=== PATIENT | female | born 1990 | race Caucasian/White ===

== ENCOUNTER 2019-08-14 19:30 | Emergency (ER) | payer OTHER, SELFPAY ==
[2019-08-14 19:41] VITALS: BP 138/75; PULSE 78; RESP 16; TEMP 36.7; O2SAT 99; BMI 41.1
--- NOTE | 2019-08-14 20:03 | ED_ITS ---
HPI - Wound/Laceration General Chief Complaint: Wound/Laceration Stated Complaint: cut pinky finger of right hand Time Seen by Provider: 08/14/19 19:53 Source: patient Mode of arrival: Ambulatory Limitations: no limitations History of Present Illness HPI narrative: 28-year-old female nonsmoker with noncontributory medical history and up-to-date tetanus presents with a chief complaint of an avulsion laceration to her right 5th finger few hours prior to arrival. She was preparing dinner and using a mandoline when suffering a laceration. Bleeding was stopped easily at home with pressure and a bandage. She has minimal pain and denies any numbness, tingling or weakness. Onset (ago): hour(s) Extremity Location: Right: hand Place: home Patient tetanus UTD: Yes Context: accidental Associated symptoms: pain Treatments prior to arrival: bandage Related Data Previous Rx's Medication Instructions Recorded cephalexin [Keflex] 500 mg PO QID 7 Days #28 cap 08/14/19 Allergies Allergy/AdvReac Type Severity Reaction Status Date / Time No Known Drug Allergies Allergy Verified 08/14/19 19:41 Review of Systems Constitutional Constitutional: Denies chills, Denies fatigue, Denies fever(s), Denies frequent falls, Denies lethargy and Denies weakness Eyes Eyes: Denies change in vision, Denies eye discharge, Denies irritation and Denies loss of vision ENT Ears, Nose, Mouth, and Throat: Denies change in voice, Denies dizziness, Denies neck pain, Denies sore throat and Denies throat swelling Cardiovascular Cardiovascular: Denies chest pain, Denies irregular heart rhythm, Denies lightheadedness, Denies palpitations, Denies dyspnea, Denies dyspnea on exertion and Denies orthopnea Respiratory Respiratory: Denies cough, Denies dyspnea, Denies dyspnea on exertion and Denies wheezing Gastrointestinal Gastrointestinal: Denies abdominal pain, Denies change in bowel habits, Denies diarrhea, Denies nausea and Denies vomiting Genitourinary Genitourinary: Denies hematuria, Denies flank pain, Denies urinary incontinence and Denies urinary urgency Musculoskeletal Musculoskeletal: Denies back pain, Denies muscle weakness, Denies neck pain, Denies numbness and Denies tingling Integumentary/Breasts Skin/Breast: Denies pruritus, Denies erythema, Denies rash and Reports wounds Neurologic Neurologic: Denies behavioral changes, Denies confusion, Denies dizziness, Denies frequent falls, Denies loss of vision, Denies numbness, Denies tingling and Denies weakness Psychiatric Psychiatric: Denies anxiety, Denies behavioral changes, Denies confusion, Denies depression, Denies homicidal ideation and Denies suicidal ideation Endocrine Endocrine: Denies fatigue, Denies flushing and Denies palpitations Hematologic/Lymphatic Hematologic/Lymphatic: Denies easy bruising Allergic/Immunologic Allergic/Immunologic: Denies urticaria, Denies throat swelling and Denies wheezing Patient History Smoking Status: Never smoker Substance Use Type: does not use Exam Narrative Exam Narrative: GEN: AOx3 and in mild distress EYES: Pupils are equal, round, and reactive to light and accommodation. Extr aoccular muscles are intact bilaterally. There is no subconjunctival hemorrhage or exudate. CHEST: Lungs are clear to auscultation bilaterally and free of wheezes, rales, or rhonchi. Heart rate is regular rhythm, there are no murmurs, clicks, rubs, or gallops. There is no chest wall tenderness. ABD: Abdomen is soft and nontender. There is no guarding or rebound. Bowel sounds are normal in all 4 quadrants. There is no mass or organomegaly. EXT: 0.5cm x 0.5cm avulsion to tip of right fifth finger. NO active bleeding. No bone exposed. Full painless ROM of all extremities with no loss of sensation or strength. SKIN: Warm, pink, and dry. No erythema or rash Initial Vital Signs Initial Vital Signs: Vital Signs Temperature 98.1 F 08/14/19 19:41 Pulse Rate 78 08/14/19 19:41 Respiratory Rate 16 08/14/19 19:41 Blood Pressure 138/75 08/14/19 19:41 Pulse Oximetry 99 08/14/19 19:41 Course Course Course Narrative: no suturing possible. Hemostatic gauze and dressing applied by nursing. Return precautions given and questions answered to the apparent satisfaction of patient Vital Signs Vital signs: Vital Signs - 8 hr 08/14/19 19:41 08/14/19 20:17 Temperature 98.1 F Pulse Rate 78 81 Respiratory Rate 16 14 Blood Pressure 138/75 128/82 Pulse Oximetry 99 100 Discharge Plan Departure Patient Disposition: Home Clinical Impression: Avulsion of skin Discharge Date/Time: 08/14/19 20:19 Instructions: DI for Avulsion Laceration (Not Requiring Sutures) Activity Restrictions/Additional Instructions: *You have been diagnosed with [avulsion laceration, not requiring sutures] *What to do: *Take medications as directed: Fill antibiotic only for mild signs of infection such as redness or drainage *Follow up with your primary care provider in 2-3 days, call for an appointment. Let them know you were seen in the Emergency Department and that we ask that you be seen in follow up *Return to ER if you should have any new, worsening or concerning symptoms, such as [increasing pain, swelling, redness, drainage or other bothersome symptoms] Prescriptions: New cephalexin [Keflex] 500 mg capsule 500 mg PO QID 7 Days Qty: 28 RF: 0
--- NOTE | 2019-08-14 20:16 | PC.NURSE ---
reports using a mandolin and cutting the tip of her left 5th finger off. tetanus up to date. cleaned with soap and water. surgicall applied and held in place with a bandaid.
[2019-08-14 20:17] VITALS: BP 128/82; PULSE 81; RESP 14; O2SAT 100
== END 2019-08-14 20:19 | disposition home or self-care (01) ==
PROVIDERS: Emergency Provider Emergency Medicine
DX: S61.216A Laceration without foreign body of right little finger without damage to nail, initial encounter (principal); W26.8XXA Contact with other sharp object(s), not elsewhere classified, initial encounter
CPT/HCPCS: 99281